=== PATIENT | female | born 1970 | race Caucasian/White ===

== ENCOUNTER 2023-02-10 11:28 | Emergency (ER) | payer OTHER ==
[2023-02-10] MEDS ORDERED: Ibuprofen 800 MG TAB ONE (12:08)
== END 2023-02-10 12:56 | disposition home or self-care (01) ==
LOC: MADERS 11:28
DX: S16.1XXA Strain of muscle, fascia and tendon at neck level, initial encounter (principal); S39.012A Strain of muscle, fascia and tendon of lower back, initial encounter; S40.012A Contusion of left shoulder, initial encounter; V89.2XXA Person injured in unspecified motor-vehicle accident, traffic, initial encounter
CPT/HCPCS: 72040; 72100

== ENCOUNTER 2023-09-21 15:10 | Emergency (ER) | payer OTHER ==
[2023-09-21] MEDS ORDERED: Metoclopramide HCl 10 MG (2 mL) VIAL ONE (15:34)
[2023-09-21] MEDS ORDERED: diphenhydrAMINE 50 MG/ML VIAL ONE (15:34)
[2023-09-21] MEDS ORDERED: Ketorolac Tromethamine 30 MG (1 mL) VIAL ONE (15:34)
[2023-09-21] MEDS ORDERED: Sodium Chloride 0.9% 1,000 ML ONE ×2 (15:34→17:51)
[2023-09-21] MEDS ORDERED: Magnesium 2 GM/50 ML BAG (IN WATER) ONE (17:51)
[2023-09-21] MEDS ORDERED: Dexamethasone 10 MG/ML VIAL ONE (18:03)
== END 2023-09-21 18:43 | disposition home or self-care (01) ==
LOC: MADERS 15:10
DX: R51.9 Headache, unspecified (principal); R11.0 Nausea; M79.7 Fibromyalgia
CPT/HCPCS: 70450; 96361; 96365; 96375; 99284; J1100; J1200; J1885; J2765; J3475; J7050

== ENCOUNTER 2023-09-23 22:59 | Emergency (ER) | payer OTHER ==
[2023-09-23] MEDS ORDERED: Acyclovir 200 mg Capsule ONE (23:50)
[2023-09-23] MEDS ORDERED: Morphine 4 MG/ML VIAL ONE (23:51)
[2023-09-23] MEDS ORDERED: Ondansetron PF 4 MG/2 ML Vial ONE (23:51)
[2023-09-23] MEDS ORDERED: Dexamethasone 10 MG/ML VIAL ONE (23:51)
[2023-09-24 00:24] LABS: #Basophils 0.1 thou/uL (0.0-0.2); #Monocytes 0.4 thou/uL (0.11-0.59); #Neutrophils 2.6 thou/uL (1.40-6.50); %Basophils 1.2 % (0.0-1.0); %Eosinophils 1.2 % (0.0-10.0); %Lymphocytes 24.4 % (21.0-51.0); %Monocytes 9.5 % (0.0-10.0); %Neutrophils 63.6 % (42.0-75.0); Hematocrit 45.7 % (36.0-47.0); Hemoglobin 14.7 g/dL (12.0-16.0); Mean Corpuscular HGB CONC 32.2 g/dL (32.0-36.0); Mean Corpuscular Hemoglobin 27.5 pg (27.0-31.0); Mean Corpuscular Volume 85.4 fl (78.0-98.0); Mean Platelet Volume 6.6 fL (7.4-10.4); Platelet Count 211 10x3/uL (130-400); RBC Distribution Width 12.1 % (11.5-14.5); Red Blood Cell (RBC) Count 5.35 mill/uL (4.20-5.40)
[2023-09-24 00:39] LABS: Anion Gap 16 mmol/L (10-20); BUN (Urea Nitrogen) 10 mg/dL (9.8-20.1); Calc. Creatinine Clearance 0 mL/min (70-130); Calcium 9.4 mg/dL (7.8-10.44); Carbon Dioxide 27 mmol/L (22-29); Chloride 100 mmol/L (98-107); Estimated GFR 74; Glucose 87 mg/dL (70-105); Potassium 3.8 mmol/L (3.5-5.1); Sodium 139 mmol/L (136-145)
[2023-09-24] MEDS ORDERED: diphenhydrAMINE 25 MG CAP ONE (01:40)
[2023-09-24] MEDS ORDERED: Gabapentin 100 MG CAP ONE (01:40)
[2023-09-24] MEDS ORDERED: Promethazine 25 MG TAB ONE (02:19)
[2023-09-24] MEDS ORDERED: Ketorolac Tromethamine 10 MG TAB ONE (02:19)
== END 2023-09-24 06:52 | disposition short-term general hospital (02) ==
LOC: MADERS 22:59
DX: B02.9 Zoster without complications (principal)
CPT/HCPCS: J1100; J2270; J2405; 80048; 85025; 86140; 96374; 96375; Q0169

== ENCOUNTER 2024-02-23 15:58 | Emergency (ER) | payer OTHER ==
[2024-02-23] MEDS ORDERED: diphenhydrAMINE 50 MG/ML VIAL ONE (16:45)
[2024-02-23] MEDS ORDERED: Sodium Chloride 0.9% 50 ML ONE (16:45)
[2024-02-23] MEDS ORDERED: Metoclopramide HCl 10 MG (2 mL) VIAL ONE (16:45)
[2024-02-23] MEDS ORDERED: methylPREDNISolone Sod Succ/PF 125 MG/2 ML VIAL ONE (16:45)
== END 2024-02-23 18:01 | disposition home or self-care (01) ==
LOC: MADERS 15:58
DX: R51.9 Headache, unspecified (principal)
CPT/HCPCS: J1200; J2765; J2919; 96374; 96375